=== PATIENT | female | born 1945 | race Caucasian/White ===

== ENCOUNTER 2020-02-17 09:14 | Day surgery (SDC) | payer MEDICARE ==
[~2020-02-17 09:14] MED LIST: CEFAZOLIN 2 GM-D5W BAG** 2 GM/50 ML ML IV ONE; CEFAZOLIN 2 GM-D5W BAG** 2 GM/50 ML ML IV SCH; Lactated Ringers 1,000 ML IV ONE; Lactated Ringers 1,000 ML IV SCH; XYLOCAINE 1% HCL 20 ML MDV ONE
[2020-02-17] MEDS ORDERED: Zofran 4 MG/2 ML VIAL ONE (12:06)
[2020-02-17] MEDS ORDERED: Decadron 4 MG INJ ONE (12:06)
[2020-02-17] MEDS ORDERED: DIPRIVAN 200 MG/20 ML IV ONE (12:06)
[2020-02-17] MEDS ORDERED: Xylocaine-Mpf 2% 5 Ml Vial ONE (12:06)
[2020-02-17] MEDS ORDERED: TORAdol 30 mg Injection ONE (12:06)
[2020-02-17] MEDS ORDERED: SUBLIMAZE 250 MCG/5 ML ONE (12:07)
[2020-02-17] MEDS ORDERED: Ephedrine Sulfate 50 MG/ML ONE (12:44)
[2020-02-17] MEDS ORDERED: ROBINUL ONE (12:45)
[2020-02-17] MEDS ORDERED: Lactated Ringers 1,000 ML IV ONE (14:51)
--- NOTE | 2020-02-17 14:59 | XRAY ---
1 minute and 13 seconds fluoroscopy time in surgery for right foot arthrodesis.
--- NOTE | 2020-02-17 15:08 | XRAY ---
Indication: 1st metatarsal arthrodesis. Intraoperative fluoroscopy was provided for 1 minute 13 seconds. 3 digital spot images submitted of the right forefoot demonstrates intact plate and 6 screws fixating the 1st MTP. Correlate with intraoperative/report.
[2020-02-17 16:10] VITALS: O2SAT 94
[2020-02-17 16:39] VITALS: BP 149/86; PULSE 70
--- NOTE | 2020-02-20 11:07 | OP ---
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 POSTOPERATIVE DIAGNOSIS: Dorsal exostosis at the second tarsometatarsal joint and hallux abducto valgus of the right foot. PROCEDURES: 1) Dorsal exostectomy of osteophyte second tarsometatarsal joint right foot. 2) First metatarsophalangeal joint arthrodesis right foot. SURGEON: Boy Guerrero DPM. MECHANICAL SHOVEL OPERATOR: None. ANESTHESIA: General plus local. ANTIBIOTICS: 2 gm Ancef. HEMOSTASIS: Ankle tourniquet set to 300 mm of Mercury for 118 minutes, Bovie electrocautery. ESTIMATED BLOOD LOSS: 20 cc. MATERIALS: 3-0 Monocryl, 2-0 Vicryl, 3-0 nylon, right Ortholoc to first metatarsophalangeal joint arthrodesis plate with a combination of cortical and locking screws. INJECTABLES: Preoperative injection of 30 cc of a 1:1 mixture of 1% lidocaine plain and 0.5% Marcaine plain. PATHOLOGY: Yes, possible gout obtained at the first metatarsophalangeal joint. MICROBIOLOGY: None. COMPLICATIONS: None. DESCRIPTION OF PROCEDURE AND FINDINGS: Following satisfactory preoperative evaluation the patient was brought into the OR table and placed in the supine position. At this time general sedation was administered by the anesthesia team. Followed sedation of 30 cc mixture of 1:1 of 0.5% Marcaine plain and 1% lidocaine plain was injected in a Holden block-type fashion as well as a V-type fashion over the dorsal exostosis. At this time the foot was then prepped and draped in the typical sterile fashion and lowered onto the surgical field. At this time attention was directed to the dorsal exostosis over the second tarsometatarsal joint where there was a palpable bony prominence. The area was confirmed at this time determining that this was indeed the second tarsometatarsal joint. Skin marker was utilized to identify the location of the incision. At this time a 15 blade was utilized to make an incision at the dorsal aspect of this joint being careful with blunt and sharp dissection to avoid any neurovascular structures in the path of this bony prominence. At this time a Weitlaner retractor was utilized to protect the neurovascular structures as well as the soft tissue structures above this bony prominence that included the extensor digitorum brevis as well as the dorsalis pedis superficial peroneal nerve and the deep peroneal nerve in this location. The joint was identified and the dorsal exostosis was observed. At this time a curved osteotome was utilized to transect the dorsal prominent this was checked under fluoroscopy and minor adjustments were made in order to eliminate all potential pressure as a result of resection of this bony prominent this was then checked again under fluoroscopy and deemed to be adequate as far as the amount of resection. The joint surfaces were intact and cartilage remained. At this time a copious amount of flush with sterile saline was performed and a rasp was then utilized to smooth down any bony prominent that may cause irritation or adhesions. Another flush was then performed and this was then again checked under fluoroscopy. At this time attention was then directed to the dorsal aspect of the first metatarsophalangeal joint where curvilinear line was drawn over the course of the metatarsal and the proximal phalanx of the great toe. At this time an incision was made over the dorsal aspect of this being careful not to resect any neurovascular structures or the extensor tendon in this area. The incision was deepened with blunt and sharp dissection. The extensor tendon was then freed from the dorsal aspect of the capsule and the capsule was exposed. A tube-shaped capsulotomy was made over the dorsal aspect of the capsule. At this point I encountered a white substance that appeared chalky in nature that resembled very closely what appears to be gout. A sample was taken and passed off for pathological assessment as there was no gout in the patient's history and may have contributed significantly to the patient's pain leading up to this point. 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 At this time a capsulotomy was performed in toto. At this time an attempt at reduction of the joint was made. However this was unable to be performed and intraoperative decision for a lateral release was deemed appropriate. After performing the lateral release the digit was able to line up in a rectus position. At this point a pair of rongeurs were utilized to resect any bony prominent at the medial aspect of the metatarsal head and the base of the proximal phalanx this was performed until the medial aspect of the metaphalangeal joint (MPJ) was congruent with the base of the first metatarsal and appeared to be adequately reduced under fluoroscopy. At this time a K-wire was then driven down the longitudinal cortex of the first metatarsal in order to prepare for cup and cone reaming of the distal metatarsal head as well as the proximal phalangeal base this was done to resect all the articular cartilage off of the head of the first metatarsal and the base of the phalanx which was done adequately and then a 2-0 drill was utilized to fenestrate the prepared fusion site in order to encourage vascular ingrowth of the two ends of bone and to promote a stable fusion. At this time a 1.5 cc syringe of augment was utilized to assist the bone healing due to the nature of cyst formations and poor bone quality. At this time it was temporary pinned with a 0.45 K-wire in order to hold the corrected position of the metaphalangeal joint. At this time a dorsal first metatarsophalangeal plate was placed over the dorsal aspect of the bone in order to assess for adequate size of the plate this was checked under fluoroscopic imaging and deemed to be adequate. At this time a locking screw was inserted into the most distal aspect of the plate and this again was checked under fluoro which was deemed to be adequate at this time. The remaining distal holes were filled with locking screws and a non-locking screw was placed into eccentric hole of the proximal extent of the plate and engaged but not as to eccentrically compress the plate until the K-wire was pulled. After the K-wire was pulled the eccentric screw was engaged with the plate in order to create compression at the joint space at the first metatarsophalangeal joint this was checked under fluoroscopy and deemed to be adequate in position and bone to bone contact. The remaining proximal holes were filled with locking screws of varying size. At this time the capsule was then closed utilizing 3-0 Monocryl in order to prevent any hardware exposure if there is a wound dehiscence. At this point a flush was performed and 2-0 Vicryl utilized to close both the incision for the dorsal exostectomy and the first metatarsophalangeal joint fusion. Following this a 3-0 Nylon was then utilized to coapt the skin edges with eversion in a horizontal mattress-type fashion. At this time the foot was then cleansed with sterile saline and dried with a dry lap towel. Betadine was applied to the foot over the incisions and a dressing of Adaptic, 4x4, Kerlix and BUDYD were applied in order to protect the foot. At this point a posterior splint was then applied in a typical Schroeder-type compression dressing. The patient was reversed from anesthesia with vital signs stable and vascular status intact. At this point the patient handled the anesthesia and the procedure well without any complication. Postoperative orders were written and are as follows: 1) Non-weight bearing to the right lower extremity. 2) Keep dressing and posterior splint clean, dry and intact until follow up visit #1. 3) Pain control Prole 7.5/325. 4) Antibiotic Keflex 500 mg every six hours for ten days. 5) Deep venous thrombosis prophylaxis aspirin 325 p.o. daily. 6) Follow up in one week to my clinic. 7) Discharge patient to home.
== END 2020-02-17 16:35 | disposition home or self-care (01) ==
LOC: SDC 09:14
PROVIDERS: ATTEND Podiatrist Foot & Ankle Surgery
DX: M20.11 Hallux valgus (acquired), right foot (principal); M89.9 Disorder of bone, unspecified; E11.9 Type 2 diabetes mellitus without complications; I10 Essential (primary) hypertension; Z79.4 Long term (current) use of insulin; Z79.899 Other long term (current) drug therapy
CPT/HCPCS: 73620; 76000; 82962; 99100; J0690; J1100; J1885; J2405; J2704; J3010

== ENCOUNTER 2020-06-13 06:08 | Day surgery (SDC) | payer MEDICARE ==
[2020-06-13] MEDS: Lactated Ringers 1,000 ML IV SCH (06:45)
[2020-06-13] MEDS ORDERED: DIPRIVAN 200 MG/20 ML IV ONE ×2 (07:33→07:44)
[2020-06-13 08:53] VITALS: BP 147/62; PULSE 58; O2SAT 97
[2020-06-13 09:38] LABS: 027 TOX PROD PRESUMPTIVE NEGATIVE (NEGATIVE); TOXIGENIC C. DIFF ORG NEGATIVE (NEGATIVE)
--- NOTE | 2020-06-13 13:02 | OP ---
SURGERY DATE/TIME: 06/13/2020 0734 PREOPERATIVE DIAGNOSIS: Chronic diarrhea. POSTOPERATIVE DIAGNOSIS: Normal colon. PROCEDURE: Diagnostic colonoscopy. SURGEON: Benny Fuentes M.D. ANESTHESIA: MAC by Terrance Gonzales CRNA. ESTIMATED BLOOD LOSS: Minimal. SPECIMENS: Stool was collected for Clostridium difficile, ova and parasites, stool culture and two random cold forceps biopsies in the sigmoid colon. DESCRIPTION OF PROCEDURE: After informed written consent was obtained, the patient was taken to the endoscopy suite. She was placed in left lateral decubitus position and anesthesia was titrated to desired level of consciousness. A digital rectal exam showed normal sphincter tone and no obvious internal lesions. The scope was inserted into the rectum and sequentially the entire colonic mucosa was traversed. The level of cecum was reached and verified with direct visualization of ileocecal valve. Upon withdrawal careful mucosal inspection revealed fair bowel prep with some semisolid stool and liquid stool present. A sample was collected and sent for ova and parasite, Clostridium difficile as well as stool culture testing. There were no obvious mucosal abnormalities. Two cold forceps biopsies were taken from the mucosa of the sigmoid colon with minimal blood loss. No other abnormalities were encountered through the entirety of the exam. Prior to withdrawal retroflexion showed no obvious internal lesions. The scope was removed and the patient was transferred to the recovery room in good condition. She has been advised to follow up in a week for pathology results and to hold her aspirin therapy for the next week as well.
== END 2020-06-13 09:10 | disposition home or self-care (01) ==
LOC: SDC 06:08
PROVIDERS: ATTEND Family Medicine
DX: K52.9 Noninfective gastroenteritis and colitis, unspecified (principal); E11.9 Type 2 diabetes mellitus without complications; Z79.4 Long term (current) use of insulin; Z79.899 Other long term (current) drug therapy
CPT/HCPCS: 82947; 87045; 87046; 87328; 87329; 87493; 99100; J2704